=== PATIENT | female | born 1955 | race Caucasian/White ===

== ENCOUNTER → 2019-01-24 | Outpatient (CLI) | payer OTHER ==
[2019-01-24 10:26] LABS: ALANINE AMINOTRANSFERASE 30 U/L (9-52); ALBUMIN 4.2 g/dL (3.5-5.0); ALKALINE PHOSPHATASE 79 U/L (38-126); ANION GAP 9 (5-19); ASPARTATE AMINO TRANSFERASE 21 U/L (14-36); BILIRUBIN,DIRECT 0.1 mg/dL (0.0-0.4); BILIRUBIN,TOTAL 0.5 mg/dL (0.2-1.3); BLOOD UREA NITROGEN 23 mg/dL (7-20); CALCIUM 9.9 mg/dL (8.4-10.2); CARBON DIOXIDE 29 mmol/L (22-30); CHLORIDE 103 mmol/L (98-107); CHOLESTEROL 204.16 mg/dL (0-200); GLUCOSE 101 mg/dL (75-110); POTASSIUM 4.6 mmol/L (3.6-5.0); SODIUM 141.3 mmol/L (137-145); TOTAL PROTEIN 7.1 g/dL (6.3-8.2); TRIGLYCERIDES 116 mg/dL (<150)
[2019-01-24 10:37] LABS: DIRECT LDL 127 mg/dL (<100)
[2019-01-25 08:44] LABS: THYROID PEROXIDASE (TPO) AB 9 IU/mL (0-34)
[2019-01-25 08:48] LABS: THYROGLOBULIN AB SO <1.0 IU/mL (0.0-0.9)
== END ==
LOC: OD 08:28
PROVIDERS: ATTEND Internal Medicine
DX: E78.5 Hyperlipidemia, unspecified (principal); E03.9 Hypothyroidism, unspecified
CPT/HCPCS: 36415; 80053; 80061; 84443; 86376

== ENCOUNTER 2019-07-13 10:55 | Emergency (ER) | payer OTHER ==
[2019-07-13] MEDS ORDERED: ASPIRIN 81 MG TABLET, CHEWABLE PO ONE (11:31)
[2019-07-13] MEDS ORDERED: MECLIZINE HCL 25 MG TABLET PO ONE (11:32)
--- NOTE | 2019-07-13 11:34 | ER Document Report ---
ED Medical Screen (RME) - General Chief Complaint: Chest Pain Stated Complaint: CHEST PAIN Time Seen by Provider: 07/13/19 11:27 Primary Care Provider: WILI RODRIGUEZ MD [Primary Care Provider] - Follow up as needed Information source: Patient Notes: Patient presents complaining of left-sided chest pain that she describes as a pressure for the past 3 days. Patient reports intermittent dizziness that is positional. Patient reports some shortness of breath. No cough or cold symptoms. Patient reports a history of hypertension, previous thyroid cancer and osteoarthritis. I have greeted and performed a rapid initial assessment of this patient. A comprehensive ED assessment and evaluation of the patient, analysis of test results and completion of the medical decision making process will be conducted by additional ED providers. TRAVEL OUTSIDE OF THE [place] IN LAST 30 DAYS: No - Related Data Allergies/Adverse Reactions: No Known Allergies Allergy (Verified 07/13/19 10:58) Past Medical History - Past Medical History Cardiac Medical History: Reports: Hx Hypertension Renal/ Medical History: Reports: Hx Kidney Stones Past Surgical History: Reports: Hx Thyroid Surgery - removal Physical Exam - Vital signs Vitals: Temp Pulse Resp BP Pulse Ox 97.8 F 86 14 136/78 H 97 07/13/19 11:09 07/13/19 11:09 07/13/19 11:07/13/19 11:09 07/13/19 11:09 - Respiratory Respiratory status: No respiratory distress Chest status: Nontender Breath sounds: Normal Chest palpation: Normal. No: Tender - Cardiovascular Rhythm: Regular Heart sounds: S1 appreciated, S2 appreciated Course - Vital Signs Vital signs: Temp Pulse Resp BP Pulse Ox 97.8 F 86 14 136/78 H 97 07/13/19 11:09 07/13/19 11:09 07/13/19 11:07/13/19 11:09 07/13/19 11:09 Doctor's Discharge - Discharge Referrals: WILI ORDRIGUEZ MD [Primary Care Provider] - Follow up as needed
[2019-07-13 11:45] LABS: ABSOLUTE EOSINOPHILS # (AUTO) 0.2 10^3/uL (0.0-0.6); ABSOLUTE LYMPHOCYTES (AUTO) 1.6 10^3/uL (0.5-4.7); ABSOLUTE MONOCYTES (AUTO) 0.7 10^3/uL (0.1-1.4); ABSOLUTE NEUT (AUTO) 3.9 10^3/uL (1.7-8.2); BASOPHILS % (AUTO) 0.5 % (0-2); EOSINOPHILS % (AUTO) 2.4 % (0-6); HEMATOCRIT 40.2 % (36.0-47.0); HEMOGLOBIN 13.9 g/dL (12.0-15.5); LYMPHOCYTES % (AUTO) 25.2 % (13-45); MEAN CORPUSCULAR HEMOGLOBIN 30.5 pg (27.0-33.4); MEAN CORPUSCULAR HGB CONC 34.5 g/dL (32.0-36.0); MEAN CORPUSCULAR VOLUME 88 fl (80-97); MONOCYTES % (AUTO) 11.4 % (3-13); PLATELET COUNT 252 10^3/uL (150-450); RED BLOOD COUNT 4.55 10^6/uL (3.72-5.28); RED CELL DISTRIBUTION WIDTH 13.1 % (11.5-14.0); SEGMENTED NEUTROPHILS % (AUTO) 60.5 % (42-78); TOTAL CELLS COUNTED % (AUTO) 100 %; WHITE BLOOD COUNT 6.5 10^3/uL (4.0-10.5)
[2019-07-13 12:06] LABS: ALBUMIN 4.4 g/dL (3.5-5.0); ALKALINE PHOSPHATASE 72 U/L (38-126); ANION GAP 10 (5-19); ASPARTATE AMINO TRANSFERASE 21 U/L (14-36); BILIRUBIN,DIRECT 0.2 mg/dL (0.0-0.4); BILIRUBIN,TOTAL 0.5 mg/dL (0.2-1.3); BLOOD UREA NITROGEN 38 mg/dL (7-20); CALCIUM 9.7 mg/dL (8.4-10.2); CARBON DIOXIDE 26 mmol/L (22-30); CHLORIDE 102 mmol/L (98-107); GLUCOSE 105 mg/dL (75-110); TOTAL PROTEIN 7.4 g/dL (6.3-8.2)
--- NOTE | 2019-07-13 12:33 | RADIOLOGY REPORT (SQ) ---
EXAM DESCRIPTION: CHEST 2 VIEWS COMPLETED DATE/TIME: 07/13/2019 12:23 pm REASON FOR STUDY: cp COMPARISON: None. EXAM PARAMETERS: NUMBER OF VIEWS: two views TECHNIQUE: Digital Frontal and Lateral radiographic views of the chest acquired. RADIATION DOSE: NA LIMITATIONS: none FINDINGS: LUNGS AND PLEURA: No opacities, masses or pneumothorax. No pleural effusion. MEDIASTINUM AND HILAR STRUCTURES: No masses or contour abnormalities. HEART AND VASCULAR STRUCTURES: Heart normal size. No evidence for failure. BONES: No acute findings. HARDWARE: None in the chest. OTHER: No other significant finding. IMPRESSION: NO ACUTE RADIOGRAPHIC FINDING IN THE CHEST. TECHNICAL DOCUMENTATION: JOB ID: [id number] [employer]- All Rights Reserved Reading location - IP/workstation name: [email or web address]
--- NOTE | 2019-07-13 14:54 | ER Document Report ---
ED General - General Chief Complaint: Chest Pain Stated Complaint: CHEST PAIN Time Seen by Provider: 07/13/19 11:27 Primary Care Provider: WILI RODRIGUEZ MD [ACTIVE STAFF] - Follow up as needed TRAVEL OUTSIDE OF THE [place] IN LAST 30 DAYS: No - HPI Notes: Patient is a 63-year-old female with a history of hypertension, previous thyroid cancer, and arthritis who presents complaining of feeling a mild chest pressure that is been constant for 1.5 days. Patient states that she will feel short of breath on occasion as well with dizziness and lightheadedness randomly. Patient has been able to eat and drink without difficulty. She is urinating normally and having normal bowel movements. Denies drug allergies. She is not on any blood thinning medications. Denies any prolonged immobilization, distance travel, recent surgery/trauma, personal cancer history, hormone use, smoking, or previous DVT/PE. Denies any headache, fever, neck pain, URI, sore throat, palpitations, syncope, cough, wheeze, abdominal pain, nausea/vomiting/diarrhea, urinary retention, dysuria, hematuria, back pain, or rash. - Related Data Allergies/Adverse Reactions: No Known Allergies Allergy (Verified 07/13/19 10:58) Past Medical History - General Information source: Patient - Social History Smoking Status: Never Smoker Chew tobacco use (# tins/day): No Frequency of alcohol use: None Drug Abuse: None Family History: Reviewed & Not Pertinent Patient has suicidal ideation: No Patient has homicidal ideation: No - Past Medical History Cardiac Medical History: Reports: Hx Hypertension Renal/ Medical History: Reports: Hx Kidney Stones. Denies: Hx Peritoneal Dialysis Past Surgical History: Reports: Hx Thyroid Surgery - removal Review of Systems - Review of Systems -: Yes All other systems reviewed and negative Physical Exam - Vital signs Vitals: Temp Pulse Resp BP Pulse Ox 97.8 F 86 14 136/78 H 97 07/13/19 11:09 07/13/19 11:09 07/13/19 11:09 07/13/19 11:09 07/13/19 11:09 - Notes Notes: PHYSICAL EXAMINATION: GENERAL: Well-appearing, well-nourished and in no acute distress. HEAD: Atraumatic, normocephalic. EYES: Pupils equal round and reactive to light, extraocular movements intact, sc hernesto anicteric, conjunctiva are normal. ENT: Nares patent and without discharge. oropharynx clear without exudates. No tonsilar hypertrophy or erythema. Moist mucous membranes. NECK: Normal range of motion, supple without lymphadenopathy LUNGS: Breath sounds clear to auscultation bilaterally and equal. No wheezes rales or rhonchi. HEART: Regular rate and rhythm without murmurs, rubs, gallops. ABDOMEN: Soft, nontender, nondistended abdomen. No guarding, no rebound. Normal bowel sounds present. No CVA tenderness bilaterally. Musculoskeletal: FROM to passive/active. Strength 5+/5. Yenifer neg. No asymmetry to LE's. Extremities: trace pitting edema b/l LE's. Peripheral pulses 2+. Capillary refill less than 3 seconds. NEUROLOGICAL: Normal speech, normal gait. PSYCH: Normal mood, normal affect. SKIN: Warm, Dry, normal turgor, no rashes or lesions noted. Course - Re-evaluation Re-evalutation: 07/13/19 15:53 Patient is an afebrile, well-hydrated 63-year-old female who presents to the ED with atypical chest pain, unspecified. Vitals are acceptable without any significant tachycardia, tachypnea, or hypoxia. PE is otherwise unremarkable. Patient is nontoxic-appearing and is tolerating p.o. without any difficulties. Pt is currently asymptomatic. CBC, CMP, EKG/cardiac enzymes 2, bnp, chest x-ra y are all unremarkable for any acute pathology. Patient has a heart score of 3, Wells score of 0. Patient does not have any chest pain, dyspnea, or shortness of breath at this time. Patient's presentation and symptomatology creates low suspicion for ACS, PE, pneumothorax, pericarditis, dissection, respiratory compromise, severe dehydration, sepsis, meningitis, or other systemic emergent condition at this time. Patient is aware that this condition can change from initial presentation and she needs to monitor symptoms closely and seek medical attention for any acute changes. Pt is feeling better and would like to go home. Recommend conservative measures for symptoms. Recheck with your PCM in 2-3 days. Consider consult with Cardiology. Return to the ED with any worsening/concerning symptoms otherwise as reviewed in discharge. Patient is in agreement. - Vital Signs Vital signs: Temp Pulse Resp BP Pulse Ox 97.8 F 86 12 131/63 H 99 07/13/19 11:09 07/13/19 11:09 07/13/19 15:01 07/13/19 15:01 07/13/19 15:01 - Laboratory Result Diagrams: 07/13/19 11:27 07/13/19 11:27 Laboratory results interpreted by me: 07/13/19 11:27 BUN 38 H Est GFR (Non-Af Amer) 49 L Discharge - Discharge Clinical Impression: Atypical chest pain Condition: Stable Disposition: HOME, SELF-CARE Instructions: Chest Pain of Unclear Cause ([facility]) Additional Instructions: Maintain adequate fluid and food intake Take home medications as directed Low sodium/fat diet Monitor blood pressure daily and keep a log Monitor symptoms for any acute changes Recheck with your PCM in 2-3 days Consider a follow-up with cardiology, consider outpatient stress testing Return to the ED with any worsening symptoms and/or development of fever, headache, chest pain, palpitations, syncope, shortness of breath, trouble breathing, abdominal pain, n/v/d, blood in stool/urine, loss of control of bowel/bladder, urinary retention, muscle weakness/paralysis, numbness/tingling, or other worsening symptoms that are concerning to you. Forms: Elevated Blood Pressure Referrals: MALI QUINN MD [ACTIVE STAFF] - Follow up as needed WILI RODRIGUEZ MD [ACTIVE STAFF] - 07/16/19
[2019-07-13 16:02] VITALS: BP 122/55
--- NOTE | 2019-07-14 10:20 | EKG REPORT ---
SEVERITY:- ABNORMAL ECG - SINUS RHYTHM RIGHT BUNDLE BRANCH BLOCK LEFT VENTRICULAR HYPERTROPHY : Confirmed by: Stephan Suarez 14-Jul-2019 10:20:05
== END 2019-07-13 16:08 | disposition home or self-care (01) ==
LOC: ER 10:55
DX: R07.89 Other chest pain (principal); R42 Dizziness and giddiness; I10 Essential (primary) hypertension; Z87.442 Personal history of urinary calculi
CPT/HCPCS: 36415; 71046; 80053; 83880; 84484; 85025; 93005; 93010; 99284

== ENCOUNTER → 2019-08-29 | Outpatient (CLI) | payer OTHER ==
[2019-08-29 14:56] LABS: ANION GAP 10 (5-19); BLOOD UREA NITROGEN 35 mg/dL (7-20); CALCIUM 9.9 mg/dL (8.4-10.2); CARBON DIOXIDE 25 mmol/L (22-30); CHLORIDE 101 mmol/L (98-107); GLUCOSE 100 mg/dL (75-110); POTASSIUM 4.3 mmol/L (3.6-5.0)
== END ==
LOC: OD 13:37
PROVIDERS: ATTEND Family Medicine Geriatric Medicine
DX: E03.9 Hypothyroidism, unspecified (principal); Z79.899 Other long term (current) drug therapy
CPT/HCPCS: 36415; 80048; 84443

== ENCOUNTER → 2019-10-10 | Outpatient (CLI) | payer OTHER | LOC: OD 12:53 | PROVIDERS: ATTEND Family Medicine Geriatric Medicine | DX: E03.9 Hypothyroidism, unspecified (principal); Z79.899 Other long term (current) drug therapy | CPT/HCPCS: 36415; 84443 ==

== ENCOUNTER → 2019-11-05 | Outpatient (CLI) | payer OTHER ==
--- NOTE | 2019-11-06 09:23 | RADIOLOGY REPORT (SQ) ---
EXAM DESCRIPTION: U/S THYROID/SFT TISS HD NECK COMPLETED DATE/TIME: 11/05/2019 5:32 pm REASON FOR STUDY: R22.1 LOCALIZED SWELLING, MASS AND LUMP, NECK R22.1 LOCALIZED SWELLING, MASS AND LUMP, NECK COMPARISON: None. TECHNIQUE: Dynamic and static mendez-scale images acquired of the thyroid gland. Selected additional c olor/power Doppler images recorded. All images stored to PACS. LIMITATIONS: None. FINDINGS: Prior thyroidectomy for thyroid neoplasm. OTHER: A solid fairly well-circumscribed mass in the right lateral neck measures 8.5 x 9.7 x 6.3 mm. Increased vascularity is noted. This correlates with the clinically palpable mass. IMPRESSION: 1. Prior thyroidectomy. 2. A well-circumscribed solid mass in the right lateral neck. Considerations for this finding inclu marycruz possible metastatic disease, primary neoplasm, as well as other etiologies. Correlation and furt her evaluation with CT Neck with IV contrast may be helpful. TECHNICAL DOCUMENTATION: JOB ID: [id number] [employer]- All Rights Reserved Reading location - IP/workstation name: [email or web address]
== END ==
LOC: RAD 15:40
PROVIDERS: ATTEND Family Medicine Geriatric Medicine
DX: R22.1 Localized swelling, mass and lump, neck (principal)
CPT/HCPCS: 76536

== ENCOUNTER → 2019-12-13 | Outpatient (CLI) | payer OTHER ==
[2019-12-13 14:50] LABS: ANION GAP 9 (5-19); BLOOD UREA NITROGEN 36 mg/dL (7-20); CALCIUM 9.8 mg/dL (8.4-10.2); CARBON DIOXIDE 29 mmol/L (22-30); CHLORIDE 99 mmol/L (98-107); GLUCOSE 94 mg/dL (75-110); POTASSIUM 4.5 mmol/L (3.6-5.0)
== END ==
LOC: OD 13:27
PROVIDERS: ATTEND Family Medicine Geriatric Medicine
DX: E03.9 Hypothyroidism, unspecified (principal); E87.1 Hypo-osmolality and hyponatremia; Z79.899 Other long term (current) drug therapy
CPT/HCPCS: 36415; 80048; 84443

== ENCOUNTER → 2019-12-24 | Outpatient (CLI) | payer OTHER ==
--- NOTE | 2019-12-24 08:44 | RADIOLOGY REPORT (SQ) ---
EXAM DESCRIPTION: MRI ORBIT/FACIAL/NECK WITHOUT COMPLETED DATE/TIME: 12/24/2019 8:26 am REASON FOR STUDY: NECK MASS (R22.1) R22.1 LOCALIZED SWELLING, MASS AND LUMP, NECK COMPARISON: Thyroid ultrasound dated 11/05/2019 TECHNIQUE: Multiplanar multisequence imaging of the soft tissues of the neck performed without contr ast. All images stored on PACS. LIMITATIONS: None. FINDINGS: SKULL BASE: Intact. MAJOR SALIVARY GLANDS: No solid or cystic masses. No inflammatory changes. LYMPHADENOPATHY: No adenopathy. MUCOSAL MASSES OR ASYMMETRY: No mucosal masses or asymmetry. LARYNX/CORDS: No abnormal findings. VASCULAR STRUCTURES: The major vessels are patent. LUNG APICES: Clear. BONES: Intact. THYROID: Normal size. No masses. PARANASAL SINUSES: Clear. OTHER: Small subcutaneous nodule demonstrated on recent ultrasound is again noted. This measures eh roximately 12 mm in greatest diameter. It appears slightly larger compared to the ultrasound. It de monstrates signal intensity similar to muscle on all sequences. As with ultrasound findings are inde terminate. No additional masses or adenopathy. IMPRESSION: Small subcutaneous soft tissue nodule as described. Possibly lymph node. No additional adenopathy. This measures approximately 12 mm in greatest dimension. TECHNICAL DOCUMENTATION: JOB ID: [id number] [employer]- All Rights Reserved Reading location - IP/workstation name: [email or web address]
== END ==
LOC: RAD 07:21
PROVIDERS: ATTEND Family Medicine Geriatric Medicine
DX: R22.1 Localized swelling, mass and lump, neck (principal)
CPT/HCPCS: 70540

== ENCOUNTER → 2020-01-14 | Outpatient (CLI) | payer OTHER ==
[2020-01-14 08:33] LABS: ABSOLUTE EOSINOPHILS # (AUTO) 0.2 10^3/uL (0.0-0.6); ABSOLUTE LYMPHOCYTES (AUTO) 1.5 10^3/uL (0.5-4.7); ABSOLUTE MONOCYTES (AUTO) 1.2 10^3/uL (0.1-1.4); ABSOLUTE NEUT (AUTO) 6.1 10^3/uL (1.7-8.2); BASOPHILS % (AUTO) 0.5 % (0-2); EOSINOPHILS % (AUTO) 2.4 % (0-6); HEMATOCRIT 37.9 % (36.0-47.0); LYMPHOCYTES % (AUTO) 16.3 % (13-45); MEAN CORPUSCULAR HEMOGLOBIN 31.4 pg (27.0-33.4); MEAN CORPUSCULAR HGB CONC 34.3 g/dL (32.0-36.0); MEAN CORPUSCULAR VOLUME 91 fl (80-97); MONOCYTES % (AUTO) 13.3 % (3-13); PLATELET COUNT 237 10^3/uL (150-450); RED BLOOD COUNT 4.15 10^6/uL (3.72-5.28); RED CELL DISTRIBUTION WIDTH 13.5 % (11.5-14.0); SEGMENTED NEUTROPHILS % (AUTO) 67.5 % (42-78); TOTAL CELLS COUNTED % (AUTO) 100 %; WHITE BLOOD COUNT 9.1 10^3/uL (4.0-10.5)
[2020-01-14 09:05] LABS: ANION GAP 7 (5-19); BLOOD UREA NITROGEN 24 mg/dL (7-20); CALCIUM 9.4 mg/dL (8.4-10.2); CARBON DIOXIDE 30 mmol/L (22-30); CHLORIDE 102 mmol/L (98-107); CHOLESTEROL 180.78 mg/dL (0-200); GLUCOSE 103 mg/dL (75-110); POTASSIUM 4.4 mmol/L (3.6-5.0); TRIGLYCERIDES 52 mg/dL (<150)
[2020-01-14 09:16] LABS: DIRECT LDL 100 mg/dL (<100)
== END ==
LOC: OD 07:25
PROVIDERS: ATTEND Family Medicine Geriatric Medicine
DX: E03.9 Hypothyroidism, unspecified (principal); E78.5 Hyperlipidemia, unspecified; I12.9 Hypertensive chronic kidney disease with stage 1 through stage 4 chronic kidney disease, or unspecified chronic kidney disease; N18.3 Chronic kidney disease, stage 3 (moderate); Z79.899 Other long term (current) drug therapy
CPT/HCPCS: 36415; 80048; 80061; 84443; 85025

== ENCOUNTER 2020-05-13 05:51 | Inpatient (IN) | payer OTHER ==
[2020-05-07 10:07] LABS: HEMOGLOBIN 14.1 g/dL (12.0-15.5); MEAN CORPUSCULAR HEMOGLOBIN 30.7 pg (27.0-33.4); MEAN CORPUSCULAR HGB CONC 34.5 g/dL (32.0-36.0); MEAN CORPUSCULAR VOLUME 89 fl (80-97); PLATELET COUNT 265 10^3/uL (150-450); RED BLOOD COUNT 4.61 10^6/uL (3.72-5.28); RED CELL DISTRIBUTION WIDTH 13.2 % (11.5-14.0); WHITE BLOOD COUNT 4.5 10^3/uL (4.0-10.5)
[2020-05-07 10:26] LABS: ANION GAP 7 (5-19); BLOOD UREA NITROGEN 27 mg/dL (7-20); CALCIUM 10.3 mg/dL (8.4-10.2); CARBON DIOXIDE 29 mmol/L (22-30); CHLORIDE 100 mmol/L (98-107); GLUCOSE 106 mg/dL (75-110); POTASSIUM 4.8 mmol/L (3.6-5.0)
--- NOTE | 2020-05-07 11:09 | EKG REPORT ---
SEVERITY:- ABNORMAL ECG - SINUS RHYTHM RIGHT BUNDLE BRANCH BLOCK : Confirmed by: Julia Garrison MD 07-May-2020 11:09:04
[~2020-05-13 05:51] MED LIST: CEFAZOLIN 2 GM/D5W RTU 2 GM/50 ML RTUPB IV ONE; CEFAZOLIN 2 GM/D5W RTU 2 GM/50 ML RTUPB IV PRN; LIDOCAINE 0.5% INJ-PF (5 MG/ML) 50 ML SDV SUBCUT PRN
[2020-05-13] MEDS ORDERED: FENTANYL CITRATE INJ/PF 250 MCG/5 ML AMPULE ONE (07:38)
[2020-05-13] MEDS ORDERED: MIDAZOLAM 2 MG/2 ML INJ ONE (07:38)
[2020-05-13] MEDS ORDERED: PROPOFOL INJ 200 MG/20 ML VIAL IV ONE (07:39)
[2020-05-13] MEDS ORDERED: EPHEDRINE SULFATE INJ 50 MG/1 ML AMPULE ONE (07:39)
[2020-05-13] MEDS ORDERED: MEPERIDINE HCL/PF INJ 25 MG/1 ML DISP.SYRIN IV PRN (08:22)
[2020-05-13] MEDS ORDERED: PROMETHAZINE HCL INJ 25 MG/1 ML VIAL IV PRN ×2 (08:22)
[2020-05-13] MEDS ORDERED: OXYCODONE-ACETAMINOPHEN 5-325 MG TABLET PO PRN ×3 (08:22→10:25)
[2020-05-13] MEDS ORDERED: DIPHENHYDRAMINE HCL 50 MG/ML VIAL IV PRN (08:22)
[2020-05-13] MEDS ORDERED: FENTANYL CITRATE INJ/PF 100 MCG/2 ML AMPUL IV PRN ×2 (08:22)
--- NOTE | 2020-05-13 10:24 | Operative Report ---
Nonrecallable Operative Report DATE OF SURGERY: 05/13/20 PREOPERATIVE DIAGNOSIS: Metastatic thyroid cancer POSTOPERATIVE DIAGNOSIS: Metastatic thyroid cancer OPERATION: Right-sided modified radical neck dissection SURGEON: SANGEETA LIN LACE BURN OUT TENDER: HUMBERTO CROOK TISSUE REMOVED OR ALTERED: Lymph nodes 2 to to level 4 lymph node basins COMPLICATIONS: None ESTIMATED BLOOD LOSS: 25 cc INTRAOPERATIVE FINDINGS: See note PROCEDURE: Patient was brought to the operating awake alert stable condition placed on the operative table supine position induced under general anesthesia intubated the right neck was prepped and draped in usual sterile fashion for the procedure. After appropriate timeout and site verification procedure commenced. A transverse incision was made in line with the angle of the jaw 2 cm below dissection was carried down through subcutaneous tissue with a knife and then through the platysma muscle with the Bovie cautery. Superior and inferior posterior medial flaps were raised with Bovie cautery. We identified the sternocleidomastoid muscle laterally the midline of the neck medially the mandible superiorly and the clavicle inferiorly. After raising skin flaps we turned attention to the upper neck and identified the digastric muscle belly and continue our dissection using that and the submandibular gland as landmarks. We retracted the submandibular gland anteriorly to identify the digastric and the dissected digastric muscle posteriorly to identify its insertion and to identify the spinal accessory nerve. We then dissected medially. We did identify the external jugular vein. We also identified the greater auricular nerve on top of the sternocleidomastoid muscle. Once this was accomplished we then began our dissection following the spinal accessory nerve from the insertion site of the digastric muscle inferiorly until it entered the sternocleidomastoid muscle. Medially the palpable mass was dissected away from the surrounding tissues and the lateral edge of the trachea. We were careful not to injure the recurrent laryngeal nerve. Once this was done we and we mobilized all the thyroidal tissue and then anterior triangle we then turned attention to the inferior portion of our dissection we mobilized the tissue from posterior to anterior superior to the clavicle dissecting all the fibrofatty tissue out of the level for basin. As we. We then dissected the sternocleidomastoid muscle away from the fascia with Bovie cautery keeping the fascia with our specimen device and peeling the muscle away from it. This can discontinue down to oral until we reached the internal jugular vein. We then dissected off the fibrofatty tissue and fascia off that internal jugular vein. Once we did this we were able to mobilize the superior portion of our lymph node basin continue blunt dissection inferiorly keeping the lymphoid package in 1 piece. We took care not to injure the spinal accessory nerve marked marginal mandibular nerve hypoglossal nerve or the phrenic nerve. All the structures were identified in our dissection once the lymph oil tissue was dissected away from the space it was sent down to pathology after being marked level level 2 and level 4. The common facial nerve was divided during the dissection. However the external jugular vein was preserved. Once the lymphatic tissue was excised we copiously irrigated the wound bed we placed a Reji-Addison drain in the dependent portion of the wound and brought out through an inferior skin incision. The platysma muscle was then reapproximated with interrupted 3-0 Vicryl and the skin was reapproximated intracuticular 4-0 Biosyn Steri-Strips completed the procedure estimated blood loss was 25 cc sponge needle counts were correct x2 the patient was awakened in the operative extubated transferred recovery stable condition no complications NESTOR Martins was present for the entire procedure for what help with wound retraction wound closure
[2020-05-13] MEDS ORDERED: MORPHINE SULFATE 10 MG/ML INJ IV PRN (10:25)
[2020-05-13] MEDS ORDERED: ONDANSETRON HCL INJ/PF 4 MG/2 ML SDV IV PRN (10:25)
[2020-05-13] MEDS ORDERED: FENTANYL CITRATE INJ/PF 100 MCG/2 ML AMPUL ONE (10:40)
[2020-05-13] MEDS: FENTANYL CITRATE INJ/PF 100 MCG/2 ML AMPUL IV PRN ×3 (10:46→10:56)
[2020-05-13] MEDS ORDERED: ACETAMINOPHEN 1,000 MG/100 ML RTUPB IV ONE ×2 (11:09→11:45)
[2020-05-13] MEDS: POTASSI CL 20 MEQ/D5-1/2NS 1L 1,000 ML IV PRN ×2 (13:08→23:30)
[2020-05-13] MEDS ORDERED: SUCCINYLCHOLINE CHLORIDE INJ 200 MG/10 ML VIAL ONE (14:41)
[2020-05-13] MEDS ORDERED: GLYCOPYRROLATE 1 MG/5 ML VIAL ONE (14:41)
[2020-05-13] MEDS ORDERED: ONDANSETRON HCL INJ/PF 4 MG/2 ML SDV ONE (14:41)
[2020-05-13] MEDS ORDERED: LIDOCAINE 2% INJ-PF (20 MG/ML) 2 ML AMPUL ONE (14:41)
[2020-05-13] MEDS ORDERED: DEXAMETHASONE SOD PHOSPHATE INJ 4 MG/1 ML VIAL ONE (14:41)
[2020-05-13] MEDS ORDERED: NEOSTIGMINE METHYLSULFATE 10 MG/10 ML VIAL ONE (14:41)
[2020-05-13] MEDS ORDERED: ROCURONIUM BROMIDE INJ 50 MG/5 ML VIAL IV ONE (14:41)
[2020-05-13] MEDS ORDERED: ACETAMINOPHEN 325 MG TABLET PO PRN (18:56)
[2020-05-13] MEDS: FAMOTIDINE INJ/PF 20 MG/2 ML SDV IV SCH (21:12)
[2020-05-14 00:30] VITALS: BP 126/48
--- NOTE | 2020-05-14 08:43 | PDOC DISCHARGE SUMMARY ---
General - Admit/Disc Date/PCP Admission Date/Primary Care Provider: 05/13/20 14:11 ZURI THAYER MD Discharge Date: 05/14/20 - Discharge Diagnosis Final Diagnosis: metastatic thyroid cancer - Assessment Summary: This patient who is status post total thyroidectomy for thyroid cancer approximately 18 years ago presented to the outpatient clinic with a new neck nodule in the right neck. It was consistent with recurrent thyroid cancer. She was taken to the operating room on the day of admission for a modified radical neck dissection. She tolerated the procedure well and the following day was tolerating p.o. diet her wound was clean dry she had no surgical sequelae her drain was in place and she is ready for discharge home today with drain in place. - Additional Information Resuscitation Status: Full Code Discharge Diet: As Tolerated Discharge Activity: Activity As Tolerated, No Lifting Over 10 Pounds - ok to dc home after lunch today needs f/u iwth me late this wk or early next wk. Referrals: SANGEETA KINNEY MD [ACTIVE STAFF] - Home Medications: Cholecalciferol (Vitamin D3) [Vitamin D] 1,000 unit PO DAILY 09/28/15 Levothyroxine Sodium [Synthroid] 150 mcg PO QHS 09/28/15 Lisinopril/Hydrochlorothiazide [Lisinopril-Hctz 20-25 mg Tab] 1 tab PO DAILY 09/28/15 Cranberry 500 mg PO DAILY 05/07/20 Meloxicam [Mobic] 7.5 mg PO DAILY 05/07/20 History of Present Illiness History of Present Illness: SPEEDY HERR is a 64 year old female Physical Exam Vital Signs: Temp Pulse Resp BP Pulse Ox 98.6 F 72 17 126/48 H 95 05/14/20 00:00 05/14/20 00:00 05/14/20 00:00 05/14/20 00:00 05/14/20 00:00 Intake & Output 05/13/20 05/14/20 05/15/20 06:59 06:59 06:59 Intake Total 0 4060 Output Total 165 Balance 0 3895 Weight 120 kg Results Laboratory Results: WBC 4.5 10^3/uL (4.0-10.5) 05/07/20 09:40 RBC 4.61 10^6/uL (3.72-5.28) 05/07/20 09:40 Hgb 14.1 g/dL (12.0-15.5) 05/07/20 09:40 Hct 41.0 % (36.0-47.0) 05/07/20 09:40 MCV 89 fl (80-97) 05/07/20 09:40 MCH 30.7 pg (27.0-33.4) 05/07/20 09:40 MCHC 34.5 g/dL (32.0-36.0) 05/07/20 09:40 RDW 13.2 % (11.5-14.0) 05/07/20 09:40 Plt Count 265 10^3/uL (150-450) 05/07/20 09:40 Sodium 136.4 mmol/L (137-145) L 05/07/20 09:40 Potassium 4.4 mmol/L (3.6-5.0) 05/13/20 06:18 Chloride 100 mmol/L (98-107) 05/07/20 09:40 Carbon Dioxide 29 mmol/L (22-30) 05/07/20 09:40 Anion Gap 7 (5-19) 05/07/20 09:40 BUN 27 mg/dL (7-20) H 05/07/20 09:40 Creatinine 0.90 mg/dL (0.52-1.25) 05/07/20 09:40 Est GFR ( Amer) > 60 (>60) 05/07/20 09:40 Est GFR (MDRD) Non-Af > 60 (>60) 05/07/20 09:40 Glucose 106 mg/dL (75-110) 05/07/20 09:40 Calcium 10.3 mg/dL (8.4-10.2) H 05/07/20 09:40 COVID-19 Source NASOPHARYNGEAL 05/07/20 09:25 COVID-19 ([facility]WEY) NOT DETECTED 05/07/20 09:25
[2020-05-14] MEDS: FAMOTIDINE INJ/PF 20 MG/2 ML SDV IV SCH (10:46)
== END 2020-05-14 12:55 | disposition home or self-care (01) | DRG 822 ==
LOC: INTOOBSV 05:51 → INOR 05:51 → 4S 11:56 → OBSVTOIN 14:11
PROVIDERS: ADMIT Surgery; ATTEND Surgery
PROC: 079 Lymphatic and Hemic Systems, Drainage (ICD-10-PCS; 2020-05-13)
PROC: 07T10ZZ Resection of Right Neck Lymphatic, Open Approach (ICD-10-PCS; principal; 2020-05-13 08:00)
DX: C77.0 Secondary and unspecified malignant neoplasm of lymph nodes of head, face and neck (principal); Z85.850 Personal history of malignant neoplasm of thyroid; E89.0 Postprocedural hypothyroidism
CPT/HCPCS: 320; 36415; 80048; 84132; 85027; 87635; 88307; 88342; 93005; 93010; 94799; C9803; J0131; J0330; J0690; J1100; J2250; J2405; J2704; J2710; J3010; J3480; J3490; S0028

== ENCOUNTER → 2020-12-05 | Outpatient (CLI) | payer OTHER ==
[2020-12-05 09:53] LABS: ABSOLUTE EOSINOPHILS # (AUTO) 0.2 10^3/uL (0.0-0.6); ABSOLUTE LYMPHOCYTES (AUTO) 1.6 10^3/uL (0.5-4.7); ABSOLUTE MONOCYTES (AUTO) 0.6 10^3/uL (0.1-1.4); ABSOLUTE NEUT (AUTO) 2.9 10^3/uL (1.7-8.2); BASOPHILS % (AUTO) 0.7 % (0-2); EOSINOPHILS % (AUTO) 3.2 % (0-6); HEMATOCRIT 40.4 % (36.0-47.0); HEMOGLOBIN 13.6 g/dL (12.0-15.5); LYMPHOCYTES % (AUTO) 30.6 % (13-45); MEAN CORPUSCULAR HGB CONC 33.7 g/dL (32.0-36.0); MEAN CORPUSCULAR VOLUME 89 fl (80-97); MONOCYTES % (AUTO) 11.2 % (3-13); PLATELET COUNT 255 10^3/uL (150-450); RED BLOOD COUNT 4.55 10^6/uL (3.72-5.28); RED CELL DISTRIBUTION WIDTH 13.8 % (11.5-14.0); SEGMENTED NEUTROPHILS % (AUTO) 54.3 % (42-78); TOTAL CELLS COUNTED % (AUTO) 100 %; WHITE BLOOD COUNT 5.3 10^3/uL (4.0-10.5)
[2020-12-05 10:33] LABS: ANION GAP 6 (5-19); BLOOD UREA NITROGEN 29 mg/dL (7-20); CALCIUM 9.6 mg/dL (8.4-10.2); CARBON DIOXIDE 30 mmol/L (22-30); CHLORIDE 101 mmol/L (98-107); GLUCOSE 103 mg/dL (75-110); POTASSIUM 4.4 mmol/L (3.6-5.0)
== END ==
LOC: OD 08:56
PROVIDERS: ATTEND Family Medicine Geriatric Medicine
DX: I10 Essential (primary) hypertension (principal); R79.89 Other specified abnormal findings of blood chemistry
CPT/HCPCS: 36415; 80048; 85025